=== PATIENT | male | born 1970 | race Caucasian/White ===

== ENCOUNTER 2018-11-14 03:16 | Emergency (ER) | payer BC ==
--- NOTE | 2018-11-14 03:52 | ED ---
General Adult HPI - General Chief complaint: Abdominal Pain Stated complaint: Male Source: patient, family Mode of arrival: ambulatory Limitations: no limitations - Related Data Previous Rx's Medication Instructions Recorded Azithromycin [Zithromax Z-pack] 0 mg PO DIRECTED #6 tab 11/14/18 Allergies Allergy/AdvReac Type Severity Reaction Status Date / Time No Known Allergies Allergy Verified 11/14/18 03:24 Review of Systems ROS Statement: Those systems with pertinent positive or pertinent negative responses have been documented in the HPI. ROS Other: All systems not noted in ROS Statement are negative. Past Medical History Additional Past Medical History / Comment(s): kidney stones History of Any Multi-Drug Resistant Organisms: None Reported Past Surgical History: No Surgical Hx Reported Past Psychological History: No Psychological Hx Reported Smoking Status: Never smoker Past Alcohol Use History: None Reported Past Drug Use History: None Reported General Exam Limitations: no limitations Course Vital Signs 11/14/18 03:19 Temperature 99.4 F Pulse Rate 84 Respiratory 20 Rate Blood Pressure 147/91 O2 Sat by Pulse 97 Oximetry Medical Decision Making - Medical Decision Making Dictation was produced using [employer] dictation software. please excuse any grammatical, word or spelling errors. Chief Complaint: 48-year-old male past medical history of nephrolithiasis presents with left flank pain. o. History of Present Illness: It has 1 day of left-sided flank pain. Patient states the last time he had a kidney stone attack was [address] was 10 years ago. Patient does not have established kidney doctor. Patient's also has some nausea and vomiting. He states that his flank pain is mild. Patient denies any constitutional symptoms. He is well-appearing. No diarrhea. The ROS documented in this emergency department record has been reviewed and confirmed by me. Those systems with pertinent positive or negative responses have been documented in the HPI. All other systems are other negative and/or noncontributory. PHYSICAL EXAM: General Impression: Alert and oriented x3, not in acute distress HEENT: Normocephalic atraumatic, extra-ocular movements intact, pupils equal and reactive to light bilaterally, mucous membranes moist. Cardiovascular: Heart regular rate and rhythm, S1&S2 audible, no murmurs, rubs or gallops Chest: Lungs clear to auscultation bilaterally, no rhonchi, no wheeze, no rales Abdomen: Bowel sounds present, abdomen soft, non-tender, non-distended, no organomegaly Musculoskeletal: Pulses present and equal in all extremities, no peripheral edema Motor: Power 5/5 bilaterally, no focal deficits noted Neurological: CN II-XII grossly intact, no focal motor or sensory deficits noted Skin: Intact with no visualized rashes Psych: Normal affect and mood ED course: 48-year-old male presents with chief complaint of left-sided flank pain. He has a history of nephrolithiasis. As upon arrival are within acceptable limits.Return evaluation obtained. CBC remarkable. Metabolic panel is shows creatinine 1.85. There is no old creatinine for comparison. Urinalysis shows moderate blood and 1+ ketones. There is [address] of the abdomen and pelvis demonstrates left lower lobe pneumonia and obstructing nephrolithiasis. Patient appears comfortable at this time. She'll be given prescription for community acquired pneumonia. He is also given referral to outpatient urology. Patient appears comfortable. He is not requesting analgesia. Patient provided with urinary hat. Patient also given primary care physician referral. - Lab Data Result diagrams: 11/14/18 03:32 11/14/18 03:32 Lab Results 11/14/18 11/14/18 11/14/18 Range/Units 03:32 03:32 03:42 WBC 5.1 (3.8-10.6) k/uL RBC 5.00 (4.30-5.90) m/uL Hgb 14.9 (13.0-17.5) gm/dL Hct 44.3 (39.0-53.0) % MCV 88.6 (80.0-100.0) fL MCH 29.9 (25.0-35.0) pg MCHC 33.7 (31.0-37.0) g/dL RDW 13.1 (11.5-15.5) % Plt Count 205 (150-450) k/uL Neutrophils % 85 % Lymphocytes % 6 % Monocytes % 7 % Eosinophils % 0 % Basophils % 0 % Neutrophils # 4.3 (1.3-7.7) k/uL Lymphocytes # 0.3 L (1.0-4.8) k/uL Monocytes # 0.4 (0-1.0) k/uL Eosinophils # 0.0 (0-0.7) k/uL Basophils # 0.0 (0-0.2) k/uL Sodium 136 L (137-145) mmol/L Potassium 4.4 (3.5-5.1) mmol/L Chloride 98 (98-107) mmol/L Carbon Dioxide 24 (22-30) mmol/L Anion Gap 14 mmol/L BUN 29 H (9-20) mg/dL Creatinine 1.85 H (0.66-1.25) mg/dL Est GFR (CKD-EPI)AfAm 49 (>60 ml/min/1.73 sqM) Est GFR (CKD-EPI)NonAf 42 (>60 ml/min/1.73 sqM) Glucose 139 H (74-99) mg/dL Calcium 9.9 (8.4-10.2) mg/dL Urine Color Yellow Urine Appearance Clear (Clear) Urine pH 6.0 (5.0-8.0) Ur Specific [place] 1.020 (1.001-1.035) Urine Protein 2+ H (Negative) Urine Glucose (UA) Negative (Negative) Urine Ketones 1+ H (Negative) Urine Blood Moderate H (Negative) Urine Nitrite Negative (Negative) Urine Bilirubin Negative (Negative) Urine Urobilinogen 8.0 (<2.0) mg/dL Ur Leukocyte Esterase Negative (Negative) Urine RBC 22 H (0-5) /hpf Urine WBC 1 (0-5) /hpf Urine Mucus Occasional H (None) /hpf Disposition Clinical Impression: Pneumonia, Nephrolithiasis Disposition: HOME SELF-CARE Condition: Good Instructions: Pneumonia (ED), Kidney Stones (ED) Prescriptions: Azithromycin [Zithromax Z-pack] 0 mg PO DIRECTED #6 tab Is patient prescribed a controlled substance at d/c from ED?: No Referrals: Aviva Degroot MD [REFERRING] - 1-2 days Matias Sepulveda MD [STAFF PHYSICIAN] - 1-2 days Time of Disposition: 05:09
[2018-11-14 04:01] LABS: Basophils % (A) 0 %; Eosinophils % (A) 0 %; HCT 44.3 % (39.0-53.0); HGB 14.9 gm/dL (13.0-17.5); Lymphocytes # (A) 0.3 k/uL (1.0-4.8); Lymphocytes % (A) 6 %; MCH 29.9 pg (25.0-35.0); MCHC 33.7 g/dL (31.0-37.0); MCV 88.6 fL (80.0-100.0); Mean Platelet Volume 7.5; Monocytes # (A) 0.4 k/uL (0-1.0); Monocytes % (A) 7 %; Neutrophils # (A) 4.3 k/uL (1.3-7.7); Neutrophils % (A) 85 %; Platelet Count 205 k/uL (150-450); RDW 13.1 % (11.5-15.5); WBC 5.1 k/uL (3.8-10.6)
[2018-11-14 04:05] LABS: Appearance,Urine Clear (Clear); Bilirubin,Urine Negative (Negative); Blood,Urine Moderate (Negative); Color,Urine Yellow; Glucose,Urine (UA) Negative (Negative); Ketones,Urine 1+ (Negative); Leukocyte Esterase,Urine Negative (Negative); Mucus,Urine Occasional /hpf; Nitrite,Urine Negative (Negative); Protein,Urine 2+ (Negative); RBC,Urine 22 /hpf (0-5); WBC,Urine 1 /hpf (0-5)
[2018-11-14 04:18] LABS: Calcium 9.9 mg/dL (8.4-10.2); Potassium 4.4 mmol/L (3.5-5.1)
--- NOTE | 2018-11-14 04:49 | CT ---
EXAMINATION TYPE: CT abdomen pelvis wo con DATE OF EXAM: 11/14/2018 COMPARISON: None HISTORY: left sided flank pain CT DLP: 399.2 mGycm Automated exposure control for dose reduction was used. TECHNIQUE: Helical acquisition of images was performed from the lung bases through the pelvis. FINDINGS: There is patchy airspace infiltrate in the posterior left lower lobe. There is no pleural effusion. H eart size is normal. There is no pericardial effusion. There is small hiatal hernia. The remainder of the stomach appears normal. Liver and spleen appear no rmal in size and contour. There are small calcified splenic granulomata. Gallbladder appears normal. Bile ducts are not dilated. There is no pancreatic mass. There are numerous bilateral renal calculi. These measure up to 8 mm. There is left-sided hydronephro sis with 6 mm obstructing calculus at the left ureteropelvic junction. There is left-sided perinephri c edema. There is a second 7 mm calculus at the left ureteropelvic junction with obstruction. The ureters are not dilated. There is no retroperitoneal adenopathy. Bladder is almost empty. There a re numerous phleboliths in the pelvis. There is no inguinal hernia. There is no free fluid in the pel vis. I see no intestinal wall thickening. There is no sign of a bowel obstruction. There is no eviden ce of free air. There is no sign of a thickened appendix. Appendix is partly visualized and appears n ormal. There is no mesenteric edema or adenopathy. Lumbar vertebra have normal spacing and alignment. Bony pelvis is intact. IMPRESSION: MULTIPLE BILATERAL RENAL CALCULI. THERE ARE 2 OBSTRUCTING CALCULI AT THE LEFT URETEROPELVIC JUNCTION WITH MODERATE HYDRONEPHROSIS AND PERINEPHRIC EDEMA. LEFT LOWER LOBE PNEUMONIA.
[2018-11-14] MEDS ORDERED: ONDANSETRON 4 MG/2 ML VIAL IVP STA (05:04)
[2018-11-14] MEDS ORDERED: KETOROLAC 30 MG/ML 1 ML VIAL IVP STA (05:05)
[2018-11-14 05:36] VITALS: BP 135/91; PULSE 78; RESP 19; TEMP 100.5
== END 2018-11-14 05:17 | disposition home or self-care (01) ==
LOC: EC 03:16
DX: J18.9 Pneumonia, unspecified organism (principal); N20.0 Calculus of kidney; Z87.442 Personal history of urinary calculi
CPT/HCPCS: 36415; 80048; 85025; 81001; 74176; 99284; 96374; 96375; J2405; J1885

== ENCOUNTER → 2019-12-23 | Outpatient (CLI) | payer BC ==
--- NOTE | 2019-12-24 16:14 | XR ---
EXAMINATION TYPE: XR KUB DATE OF EXAM: 12/23/2019 COMPARISON: 07/30/2011 INDICATION: Bilateral renal calculi TECHNIQUE: Single view abdomen supine view FINDINGS: There is a normal bowel gas pattern. Psoas margins are normal. No organomegaly is present. There are multiple calcifications within the left kidney. The largest measures 0.6 cm at the inferior pole. Right renal calcifications are less well visualized.r there is some increased density over the right sacroiliac joint may be a large calcification or sclerosis along the iliac wing. IMPRESSION: 1. Bilateral renal stones remain present. There may be a new calcification in the right iliac wing.
== END | disposition home or self-care (01) ==
LOC: RAD 17:07
PROVIDERS: ATTEND Urology
DX: N20.0 Calculus of kidney (principal)
CPT/HCPCS: 74018

== ENCOUNTER → 2021-01-18 | Outpatient (CLI) | payer OTHER ==
--- NOTE | 2021-01-19 14:10 | CT ---
EXAMINATION TYPE: CT abdomen pelvis wo con DATE OF EXAM: 01/18/2021 COMPARISON: 11/14/2018. HISTORY: flank pain, hx of stones CT DLP: 672 mGycm Automated exposure control for dose reduction was used. TECHNIQUE: Helical acquisition of images was performed from the lung bases through the pelvis. FINDINGS: LUNG BASES: No significant abnormality is appreciated. LIVER/GB: No significant abnormality is appreciated. PANCREAS: No significant abnormality is seen. SPLEEN: No significant abnormality is seen. Few punctate benign splenic calcifications, can be seen w ith prior granulomatous disease. ADRENALS: No significant abnormality is seen. KIDNEYS: Redemonstrated are multiple nonobstructing bilateral renal calculi, at least 5 in each kidne y measuring up to 7 mm. No bilateral hydronephrosis. FREE AIR: No free air is visualized RETROPERITONEAL ADENOPATHY: None visualized REPRODUCTIVE ORGANS: No significant abnormality is seen URINARY BLADDER: No significant abnormality is seen. PELVIC ADENOPATHY: None visualized. OSSEOUS STRUCTURES: No significant abnormality is seen. BOWEL: No significant abnormality is seen. OTHER: Multiple pelvic phleboliths. IMPRESSION: NO ACUTE ABNORMALITY. MULTIPLE BILATERAL NONOBSTRUCTING RENAL CALCULI.
== END | disposition home or self-care (01) ==
LOC: RADCTMAIN 17:00
PROVIDERS: ATTEND Urology
DX: N20.0 Calculus of kidney (principal)
CPT/HCPCS: 74176